=== PATIENT | male | born 1975 ===

== ENCOUNTER 2021-04-17 16:21 | Emergency (ER) | payer SELFPAY ==
[2021-04-17] MEDS ORDERED: MVI, Adult with Vitamin K 10 ML, Thiamine 100 MG, Folic Acid 1 MG in Lactated Ringers 1... IV ONE ×4 (16:43)
[2021-04-17] MEDS ORDERED: Iopamidol 612 MG/ML 100 ML Bottle IVPUSH ONE (16:43)
[2021-04-17] MEDS ORDERED: Iopamidol 612 MG/ML 50 ML SDV IVPUSH ONE (17:04)
[2021-04-17 17:28] LABS: ANION GAP 15.4 mEq/L (7-13); CHLORIDE,CL 102 mmol/L (98-107); SODIUM,NA 139 mmol/L (136-145)
[2021-04-17 17:30] LABS: PTT,PARTIAL THROMBOPLSTIN TIME 24.3 SEC (22.0-34.0)
[2021-04-17] MEDS ORDERED: Lidocaine 1% with EPINEPHrine 1:100,000 20 ML MDV INJECT ONE (18:08)
[2021-04-17] MEDS ORDERED: Bacitracin Oint 1 GM U/D Packet TOP ONE (18:08)
== END 2021-04-17 19:49 | disposition home or self-care (01) ==
LOC: DL.ED 16:21
DX: S01.111A Laceration without foreign body of right eyelid and periocular area, initial encounter (principal); K83.1 Obstruction of bile duct; R16.1 Splenomegaly, not elsewhere classified; E04.2 Nontoxic multinodular goiter; F10.129 Alcohol abuse with intoxication, unspecified; R74.8 Abnormal levels of other serum enzymes; Z72.0 Tobacco use; Y04.0XXA Assault by unarmed brawl or fight, initial encounter
CPT/HCPCS: 12011; 36415; 70450; 71260; 72125; 74177; 80053; 80307; 82150; 83690; 83735; 85025; 85610; 85730; 86140; 96365; 99284; J3411; J7120; Q9967; J3490